=== PATIENT | male | born 2000 | race Hispanic/Latino ===

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

== ENCOUNTER 2022-04-27 04:21 | Emergency (ER) | payer SELFPAY | END 2022-04-27 04:41 | disposition home or self-care (01) | LOC: ERS 04:21 | DX: S60.416A Abrasion of right little finger, initial encounter (principal); X58.XXXA Exposure to other specified factors, initial encounter | CPT/HCPCS: 99283 ==